=== PATIENT | female | born 1935 | race Caucasian/White ===

== ENCOUNTER 2019-03-28 10:34 | Observation (INO) | payer OTHER, MEDICARE ==
--- NOTE | 2019-03-28 11:00 | EDPHY ---
H & P - Personal History Tetanus Vaccine Date: 2007 - Medical/Surgical History Hx Asthma: No Hx Chronic Respiratory Disease: Yes Hx Diabetes: No Hx Cardiac Disease: No Hx Renal Disease: No Hx Cirrhosis: No Hx Alcoholism: No Hx HIV/AIDS: No Hx Splenectomy or Spleen Trauma: No Other PMH: hysterectomy, R masectomy, Afib, anxiety, gerd, high cholesterol, PE 2007, ortho surgery, duodenal ulcer. mild diabetic, unmedicated. copd - Social History Smoking Status: Never smoked Time Seen by Provider: 03/28/19 10:45 HPI/ROS: CHIEF COMPLAINT: Headache, chest pain, dyspnea HISTORY OF PRESENT ILLNESS: 83-year-old female history of atrial fibrillation, arrives via ambulance complaining of waking up at 4:00 a.m. with non thunderclap holocephalic headache neck pain as well as left-sided chest and arm pain. She went back to sleep woke few hours later and symptoms continued which point she contacted the nurse line who recommend she call 911. She currently denies chest pain. She is complaining of continued headache. Denies: Gait instability, visual disturbance, photophobia, nausea, vomiting, recent illness, melena, hematochezia PRIMARY CARE PROVIDER: Dr. Atul Maya REVIEW OF SYSTEMS: 10 systems reviewed and negative with the exception of the elements mentioned in the history of present illness PAST MEDICAL & SURGICAL HISTORY: Atrial fibrillation on anticoagulation. Retained surgical needle in her abdomen secondary to hysterectomy in 2012. SOCIAL HISTORY:Nonsmoker. Lives at home. PHYSICAL EXAM (Prior to examination, patient consented to physical exam, hands were washed and my usual and customary physical exam procedures followed) 1) GENERAL: Well-developed, well-nourished, alert and oriented. Appears to be in no acute distress. 2) HEAD: Normocephalic, atraumatic 3) HEENT: Pupils equal, round, reactive to light bilaterally. Sclera anicteric. [ 4) NECK: Full range of motion, no meningeal signs. No carotid bruit 5) LUNGS: Clear auscultation bilaterally, no wheezes, no rhonchi, no retractions. 6) HEART: Regular rate and rhythm, no murmur, no heave, no gallop. 7) ABDOMEN: No guarding, no rebound, no focal tenderness, negative McBurney's, negative Olguin's, negative Rovsing's, negative peritoneal sign, 8) MUSCULOSKELETAL: Moving all extremities, no focal areas of tenderness, no obvious trauma. No peripheral edema or discoloration. Negative Homans no palpable cord 9) BACK: No CVA tenderness, no midline vertebral tenderness, no fluctuance, no step-off, no obvious trauma, no visual or palpable abnormality. 10) SKIN: No rash, no petechiae. 11) Psychiatric: Patient is oriented X 3, there is no agitation. DIFFERENTIAL DIAGNOSIS: In no particular order, including but not limited to myocardial ischemia, pulmonary embolus, chest wall pain, pleural inflammation and pulmonary infectious causes. (Marco Lim) Constitutional: Initial Vital Signs Temperature (C) 36.8 C 03/28/19 11:31 Heart Rate 83 03/28/19 11:31 Respiratory Rate 18 03/28/19 11:31 Blood Pressure 151/62 H 03/28/19 11:31 O2 Sat (%) 97 03/28/19 11:31 O2 Delivery Mode Nasal Cannula O2 (L/minute) 1 Allergies/Adverse Reactions: rocuronium Allergy (Severe, Verified 03/28/19 11:35) respiratory depression codeine [Codeine] Allergy (Intermediate, Verified 03/28/19 11:35) RASH, NAUSEA hydromorphone HCl [From Dilaudid] Allergy (Intermediate, Verified 03/28/19 11:35 ) RASH, NUASE Home Medications: Medication Instructions Recorded Acetaminophen [Tylenol ES 500 mg 1,000 mg PO DAILY18 PRN 03/07/13 (*)] Albuterol [Proventil Inhaler HFA 1 - 2 puffs IH Q4 PRN 03/07/13 (*)] Atorvastatin Calcium [Lipitor 10 10 mg PO DAILY 03/07/13 mg (*)] Azelastine [Astelin] 1 sprays EACHNARE DAILY 03/07/13 Budesonide/Formoterol 160/4.5 2 puffs IH BID 03/07/13 [Symbicort 160-4.5 Mcg Inh (*)] Cholecalciferol Vit D3 [Vitamin D3 1,000 units PO DAILY 03/07/13 (*)] Esomeprazole Magnesium [Nexium] 40 mg PO BID 03/07/13 Furosemide [Lasix 20 MG (*)] 20 mg PO DAILY 03/07/13 Gabapentin [Neurontin 100 MG (*)] 200 mg PO TID 03/07/13 Herbals/Supplements -Info Only 1 each PO AD 03/07/13 Multivitamins [Multivitamin (*)] 1 each PO DAILY 03/07/13 Spironolactone 50 mg PO BID 03/07/13 busPIRone HCL [Buspirone HCl] 20 mg PO DAILY18 03/07/13 busPIRone HCL [Buspirone HCl] 30 mg PO DAILY 03/07/13 Apixaban [Eliquis] 5 mg PO BID 12/24/14 Bisoprolol Fumarate [Zebeta] 10 mg PO DAILY 12/24/14 Famotidine [Pepcid 20 MG (*)] 20 mg PO DAILY 12/24/14 Fluticasone Nasal [Flonase Nasal 2 sprays EACHNARE DAILY 12/24/14 Bishop] ZOLPIDEM TARTRATE [Ambien CR 12.5 12.5 mg PO HS 12/24/14 mg] Medical Decision Making - Diagnostics EKG Interpretation: EKG: Complete interpretation has been separately recorded in the [facility] archive. Summary impression: Atrial fibrillation, rate 85, no ST segment elevation or depression noted (Michael Vela) Imaging Results: Imaging Impressions Chest X-Ray 03/28/19 10:55 Impression: Early or impending CHF. A routine upright PA chest would be helpful , if and when the patient is clinically able, to better evaluate the cardiothoracic equilibrium. Procedures: Rectal examination Indication: Anemia Indications risks benefits discussed with patient she consents. With female certified emergency vehicle technician Lynsey at bedside the patient was placed in left lateral recumbent position. Digital rectal examination reveals hard brown stool in the rectal vault. Patient tolerated procedure well. (Marco Lim) ED Course/Re-evaluation: Reviewed the patient's medical records including noncontrast CT , CTA brain performed 3 days ago at outpatient [facility]. Noncontrast CT is negative. CTA brain shows a "stable tiny outpouching arising from the superior aspect of the mid left M1 branch most consistent with an infundibulum rather than a true aneurysm. No further follow-up necessary." Given the patient's age , risk factors, recommended admission for further evaluation of her chest pain. Will hold at this time on imaging of the brain given her her recent imaging at [facility]. Due to her history of retained intra-abdominal surgical instrument MRI is not possible. Noon: Consultation with hospitalist Dr. Amber Sarabia will admit patient for chest pain (Marco Lim) - Data Points Laboratory Results: Laboratory Results 03/28/19 11:05 03/28/19 11:05 03/28/19 03/28/19 03/28/19 11:26 11:13 11:05 WBC RBC Hgb POC Hgb 10.5 gm/dL L gm/dL (12.6-16.3) Hct POC Hct 31 % L % (38-47) MCV MCH MCHC RDW Plt Count MPV Neut % (Auto) Lymph % (Auto) [place] % (Auto) Eos % (Auto) Baso % (Auto) Nucleat RBC Rel Count Absolute Neuts (auto) Absolute Lymphs (auto) Absolute Monos (auto) Absolute Eos (auto) Absolute Basos (auto) Absolute Nucleated RBC Immature Gran % Immature Gran # POC Sodium 136 mEq/L mEq/L (135-145) Sodium 134 mEq/L L mEq/L (135-145) POC Potassium 4.3 mEq/L mEq/L (3.3-5.0) Potassium 4.6 mEq/L mEq/L (3.5-5.2) POC Chloride 100 mEq/L mEq/L (97-110) Chloride 100 mEq/L mEq/L (97-110) Carbon Dioxide 24 mEq/l mEq/l (22-31) POC Total CO2 26 mEq/L mEq/L (22-31) Anion Gap 10 mEq/L mEq/L (6-14) POC BUN 26 mg/dL H mg/dL (7-23) BUN 29 mg/dL H mg/dL (7-23) Creatinine 0.8 mg/dL mg/dL (0.6-1.0) POC Creatinine 0.9 mg/dL mg/dL (0.6-1.0) Estimated GFR > 60 Glucose 146 mg/dL H mg/dL (70-100) POC Glucose 155 mg/dL H mg/dL (70-100) Calcium 9.2 mg/dL mg/dL (8.5-10.4) POC Troponin I Stool Occult Bld Scrn NEGATIVE (NEGATIVE) 03/28/19 03/28/19 11:05 10:58 WBC 16.25 10^3/uL H 10^3/uL (3.80-9.50) RBC 3.81 10^6/uL L 10^6/uL (4.18-5.33) Hgb 9.8 g/dL L g/dL (12.6-16.3) POC Hgb Hct 31.0 % L % (38.0-47.0) POC Hct MCV 81.4 fL L fL (81.5-99.8) MCH 25.7 pg L pg (27.9-34.1) MCHC 31.6 g/dL L g/dL (32.4-36.7) RDW 16.1 % H % (11.5-15.2) Plt Count 318 10^3/uL 10^3/uL (150-400) MPV 10.1 fL fL (8.7-11.7) Neut % (Auto) 83.5 % H % (39.3-74.2) Lymph % (Auto) 10.0 % L % (15.0-45.0) [place] % (Auto) 4.8 % % (4.5-13.0) Eos % (Auto) 0.9 % % (0.6-7.6) Baso % (Auto) 0.2 % L % (0.3-1.7) Nucleat RBC Rel Count 0.0 % % (0.0-0.2) Absolute Neuts (auto) 13.57 10^3/uL H 10^3/uL (1.70-6.50) Absolute Lymphs (auto) 1.62 10^3/uL 10^3/uL (1.00-3.00) Absolute Monos (auto) 0.78 10^3/uL 10^3/uL (0.30-0.80) Absolute Eos (auto) 0.15 10^3/uL 10^3/uL (0.03-0.40) Absolute Basos (auto) 0.04 10^3/uL 10^3/uL (0.02-0.10) Absolute Nucleated RBC 0.00 10^3/uL 10^3/uL (0-0.01) Immature Gran % 0.6 % % (0.0-1.1) Immature Gran # 0.09 10^3/uL 10^3/uL (0.00-0.10) POC Sodium Sodium POC Potassium Potassium POC Chloride Chloride Carbon Dioxide POC Total CO2 Anion Gap POC BUN BUN Creatinine POC Creatinine Estimated GFR Glucose POC Glucose Calcium POC Troponin I 0.02 ng/mL ng/mL (0.00-0.08) Stool Occult Bld Scrn Point of Care Test Results: Chemistry 03/28/19 03/28/19 11:13 10:58 POC Sodium 136 mEq/L mEq/L (135-145) POC Potassium 4.3 mEq/L mEq/L (3.3-5.0) POC Chloride 100 mEq/L mEq/L (97-110) POC Total CO2 26 mEq/L mEq/L (22-31) POC BUN 26 mg/dL H mg/dL (7-23) POC Creatinine 0.9 mg/dL mg/dL (0.6-1.0) POC Glucose 155 mg/dL H mg/dL (70-100) POC Troponin I 0.02 ng/mL ng/mL (0.00-0.08) ISTAT H&H 03/28/19 11:13 POC Hgb 10.5 gm/dL L gm/dL (12.6-16.3) POC Hct 31 % L % (38-47) Departure - Departure Disposition: [facility] Inpatient Acute Clinical Impression: Chest pain Qualifiers: Chest pain type: unspecified Qualified Code(s): R07.9 - Chest pain, unspecified Headache Qualifiers: Headache type: unspecified Headache chronicity pattern: acute headache Intractability: not intractable Qualified Code(s): R51 - Headache Anemia Qualifiers: Anemia type: unspecified type Qualified Code(s): D64.9 - Anemia, unspecified Condition: Fair
[2019-03-28 11:15] LABS: PLATELET COUNT 318 10^3/uL (150-400)
--- NOTE | 2019-03-28 11:15 | CPEKG ---
Test Reason : OPEN Blood Pressure : / mmHG Vent. Rate : 085 BPM Atrial Rate : 000 BPM P-R Int : 166 ms QRS Dur : 087 ms QT Int : 372 ms P-R-T Axes : 000 085 016 degrees QTc Int : 443 ms Atrial fibrillation Anterior infarct, old Confirmed by Michael Vela ([id number]) on 03/28/2019 11:14:59 AM Referred By: Michael Vela Confirmed By:Michael Veal
[2019-03-28] MEDS ORDERED: MECLIZINE HCL 25 MG TAB PO PRN (13:59)
[2019-03-28] MEDS ORDERED: ONDANSETRON 4 MG/2 ML VIAL IVP PRN (14:00)
[2019-03-28] MEDS ORDERED: traMADol 50 MG TAB PO PRN (14:00)
[2019-03-28] MEDS ORDERED: D50W 25 GM/50 ML SYR IVP PRN (14:07)
[2019-03-28] MEDS: oxyCODONE IR 5 MG TAB PO PRN ×3 (14:30→22:35)
--- NOTE | 2019-03-28 15:07 | GHP ---
[f rep st] HISTORY AND PHYSICAL DATE OF ADMISSION: 03/28/2019 CHIEF COMPLAINT: Chest pain, vertigo, headache. HISTORY: The patient is an 83-year-old female who has been having a headache and dizziness for the last 2 weeks. Headache has been very severe, frontal, with associated dizziness which she describes consistent with vertigo. She saw her primary care doctor and had an outpatient CT scan of the head and CT angiogram. CT head was negative. CTA showed "stable tiny outpouching arising from the superior aspect of the mid left M1 branch most consistent with an infundibulum rather than a true aneurysm. No further followup necessary." Her headache continues but then last night she developed chest pain as well. She describes it as a midsternal chest pain feeling like a rock or heaviness on her chest associated with left-sided shoulder pain radiating down her arm. Chest pain lasted a few hours and is now gone. Her last stress test was approximately 3-4 years ago and she previously had a cardiac angiogram more distant than that. She sees Dr. James. Her shortness of breath is at baseline. She does have increased edema. She is currently requiring a walker because of her dizziness. PAST MEDICAL HISTORY: 1. Atrial fibrillation. 2. Congestive heart failure. 3. Obstructive sleep apnea on CPAP. 4. Diabetes type 2. 5. Duodenal ulcer with GI bleed. 6. Breast cancer 1989. 7. COPD 2 L. 8. Retained intraabdominal surgical instrument complication of her hysterectomy. PAST SURGICAL HISTORY: 1. Cholecystectomy. 2. Hysterectomy. 3. Mastectomy. MEDICATIONS: Please see computerized record for full detailed list. ALLERGIES: Dilaudid. SOCIAL HISTORY: She has never been a smoker. She is a recovering alcoholic. Has not had any alcohol in 36 years. She currently lives in [place] in the guest home on her son's property which is only a short distance to her son's home. REVIEW OF SYSTEMS: Complete review of systems obtained. Review of systems negative on constitutional, HEENT, GI, pulmonary, breast, , hematologic, endocrine, psych except for positives as in HPI. FAMILY HISTORY: Father had his 1st NE in his 50s. PHYSICAL EXAMINATION: GENERAL: Well-developed, well-nourished female, in no distress. VITAL SIGNS: Temperature 36.8, pulse 83, blood pressure 151/62, saturating 96% on 1 L. EYES: Normal conjunctivae. Pupils equal, round, react to light. ENT: Normal ears, nose. Hearing intact. Normal teeth. Oropharynx moist. NECK: Trachea midline. No thyromegaly. CHEST: Normal effort. LUNGS : Bibasilar rales. CARDIOVASCULAR: Regular rhythm. No murmur. 2+ lower extremity edema. ABDOMEN: Soft, nontender. No hepatosplenomegaly. SKIN: Warm, dry, intact. No rash. MUSCULOSKELETAL: No cyanosis or clubbing. Strength 5/5 upper and lower extremities. NEUROLOGIC: Cranial nerves intact. Normal sensation to light touch. PSYCH: Alert and oriented x3. Normal affect. Normal judgment. Normal memory. LABORATORY DATA: White count 16.25, hematocrit 31.0, platelets 318, sodium 134 , potassium 4.6, chloride 100, bicarb 24, BUN 29, creatinine 0.8, glucose 146. Troponins negative. EKG viewed by me. My personal interpretation is rate controlled atrial fibrillation but no ST- or T-wave changes. Chest x-ray shows cardiomegaly and congestive heart failure. ASSESSMENT/PLAN: 1. Chest pain. Her HEART score is 5. She is unable to exercise secondary to her vertigo, currently requiring a walker as well as mild decompensated congestive heart failure. Will continue serial troponins. Order Lexiscan stress test for tomorrow morning. 2. Acute on chronic congestive heart failure. We will check an echocardiogram to assess ejection fraction. Will diurese with IV Lasix. 3. Headache. She just had a CT angiogram of the head and a head CT a few days ago as an outpatient. The findings were as listed under HPI. Her headache has not changed since these scans were done so I do not think they need to be repeated. 4. Vertigo. Will prescribe meclizine as needed as well as physical and occupational therapy. She cannot get an MRI secondary to retained needle left in her intraabdominal cavity at the time of her hysterectomy. 5. Atrial fibrillation. She is on rate control with diltiazem and digoxin. Eliquis for stroke prevention. 6. Leukocytosis. Will rule out infection. 7. Microcytic anemia. We will check iron studies. 8. Obesity, BMI 34, with obstructive sleep apnea. Continue continuous positive airway pressure at night. 9. Chronic obstructive pulmonary disease with chronic respiratory failure 2 L baseline. Continue her typical inhaler regimen. 10. Diabetes type 2. Continue Lantus. 11. Duodenal ulcer with gastrointestinal bleed as well as a history of esophageal dysmotility that is known to cause intermittent chest pains. If cardiac workup is negative I do suspect current chest pain presentation is due to esophageal spasm. We will continue her proton pump inhibitor. CODE STATUS: Full. ADMISSION STATUS: 1. Will admit to observation. We will re-evaluate tomorrow. 2. DVT prophylaxis. She is on Eliquis. /[id number]/MODL MTDD
[2019-03-28] MEDS: busPIRone 15 MG TAB PO SCH ×2 (15:48→21:17)
[2019-03-28] MEDS: GABAPENTIN 400 MG CAP PO SCH ×2 (15:48→21:17)
[2019-03-28] MEDS: FUROSEMIDE 40 MG/4 ML VIAL IVP SCH (15:48)
[2019-03-28] MEDS: ACETAMINOPHEN 325 MG TAB PO PRN (16:06)
[2019-03-28] MEDS: INSULIN REGULAR HUMAN 100 UNIT/ML UNIT SC SCH ×2 (18:13→21:08)
--- NOTE | 2019-03-28 18:13 | ECHO ---
[email or web address] [address] Main: [phone] Echocardiography Examination Transthoracic Name: JAYRO MURRAY MR#: [id number] Study Date: 03/28/2019 Study Time: 02:50 PM Date of : 1935 Age: 83 year(s) Height: 154.9 cm (61 in.) Weight: 80.74 kg (178 lb.) BSA: 1.8 m2 Gender: Female Examination: Echo Contrast: Image Quality: Adequate Rhythm: Heart Rate: BP: 137 mmHg/57 mmHg Indication: CHF/chest pain/chronic atrial fibrillation Procedure Staff Referring Physician: Financial Report Service Sales Agent: Dennise Schmidt [facility] Reading Physician: Indira Benson MD Requesting Provider: Ordering Physician: Amber Sarabia Indication: CHF/chest pain/chronic atrial fibrillation Measurements Chambers AV/MV Label Value Normal Value Label Value Normal Value LVOTd 2.2 cm (1.8cm - 2cm) AV PGmean 8 mmHg LVDd, 2D 5 cm (3.9cm - 5.3cm) AV Vmax 1.92 m/s LVDs, 2D 2.8 cm (2.1cm - 4cm) MV E Vmax 1.5 m/s IVSd, 2D 0.9 cm (0.6cm - 1.1cm) MV A Vmax 0.38 m/s LVPWd, 2D 0.8 cm MV E/A 3.95 LVEF, BP 68 % (55% - 70%) MV E/E' lateral 22 LVEF, 2D 76 % (54% - 74%) MV E/E' septal 19 (0.45 - 1.25) LADs, 2D 4.1 cm (2.7cm - 3.8cm) MV E' septal 0.08 m/s Additional Vessels MV E' lateral 0.07 m/s Label Value Normal Value MV E/E' mean 20 AoAsc 3.2 cm MV E' mean 0.08 m/s AoRoot, MM 2.9 cm (2.2cm - 3.7cm) TV/PV Label Value Normal Value RA Pressure 5 mmHg RVSP 36 mmHg TR Pmax 31 mmHg TR Vmax 2.8 m/s Patient: JAYRO MURRAY Study Date: 03/28/2019 Page 1 of 3 02:50 PM Conclusions 1. The left ventricle is normal in size systolic function. Normal wall motion. Ejection fraction is 68% 2. The right ventricle normal size and systolic function. 3. Moderate biatrial dilation. 4. Mild mitral regurgitation. 5. moderate tricuspid regurgitation with normal estimated PA systolic pressure. 6. No prior transthoracic echo for comparison. The patient previously has had a somewhat limited VINNY in 2014. Findings Left Ventricle: Left ventricle is normal in size. Normal global systolic left ventricular function. The ejection fraction, measured by Simpsons method, is 68 %. EF range is estimated at 65 % - 70 %. Left ventricle wall thickness is normal. There are no regional wall motion abnormalities. Unable to assess Diastolic Dysfunction due to atrial fibrillation/a flutter. IVS: The septum is intact. Right Ventricle: Normal size right ventricle. Right ventricular systolic function is normal. Left Atrium: The left atrium is moderately dilated. IAS: Normal appearing atrial septum. Right Atrium: The right atrium is moderately dilated. Mitral Valve: Mild mitral regurgitation. No mitral valve stenosis. There is mild mitral calcification. Aortic Valve: Aortic leaflets exhibit normal cuspal separation. Trivial aortic regurgitation is present. There is no aortic stenosis. The aortic valve is trileaflet. Tricuspid Valve: Tricuspid valve leaflets are normal in appearance and function. Moderate tricuspid regurgitation. No tricuspid valve stenosis. Right Ventricular systolic pressure is measured at 36 mmHg. Pulmonary artery pressure normal. Pulmonic Valve: Pulmonic leaflets exhibit normal cuspal separation. No pulmonic valve regurgitation is evident. There is no pulmonic valve stenosis. Aorta: The aorta is normal. The aortic root size in M-mode measures 2.9 cm. The ascending aorta measures 3.2 cm. Aorta Measurements AoRoot, MM is 2.9 cm. Pulmonary Artery: The pulmonary artery morphology appears normal. IVC: The inferior vena cava is normal in size and course. There is no inspiratory collapse of the IVC. Pericardium: No pericardial effusion. No pleural effusion present. Exam Details Procedure Ordered: Echo Procedure Status: Routine study Image Quality: Adequate Facility Location: Cardiac Echo 1 Patient: JAYRO MURRAY Study Date: 03/28/2019 Page 2 of 3 02:50 PM (No Signature Object) Patient: JAYRO MURRAY Study Date: 03/28/2019 Page 3 of 3 02:50 PM [id number]
[2019-03-28] MEDS ORDERED: INSULIN GLARGINE HUM REC ANLOG 18 UNIT SQ SCH (21:00)
[2019-03-28] MEDS: APIXABAN 5 MG TAB PO SCH (21:17)
[2019-03-28] MEDS: ATORVASTATIN CALCIUM 10 MG TAB PO SCH (21:17)
[2019-03-28] MEDS ORDERED: INSULIN GLARGINE 100 UNITS/ML UNIT SC ONE (23:45)
[2019-03-29] MEDS: INSULIN REGULAR HUMAN 100 UNIT/ML UNIT SC SCH ×4 (07:40→21:52)
[2019-03-29] MEDS: ACETAMINOPHEN 325 MG TAB PO PRN ×2 (08:29→18:18)
[2019-03-29] MEDS: DILTIAZEM CD 180 MG CAP PO SCH (08:50)
[2019-03-29] MEDS: PANTOPRAZOLE SODIUM 40 MG TAB PO SCH (08:51)
[2019-03-29] MEDS: LOSARTAN POTASSIUM 50 MG TAB PO SCH (08:51)
[2019-03-29] MEDS: APIXABAN 5 MG TAB PO SCH (08:51)
[2019-03-29] MEDS: busPIRone 15 MG TAB PO SCH ×3 (08:51→21:51)
[2019-03-29] MEDS: GABAPENTIN 400 MG CAP PO SCH ×3 (08:51→21:52)
[2019-03-29] MEDS: FUROSEMIDE 40 MG/4 ML VIAL IVP SCH ×2 (08:51→15:36)
[2019-03-29 08:54] LABS: PLATELET COUNT 305 10^3/uL (150-400)
[2019-03-29] MEDS ORDERED: PANTOPRAZOLE SODIUM 40 MG TAB PO SCH (09:00)
[2019-03-29] MEDS: TIOTROPIUM INHALER 18 MCG/DOSE 5 DOSE/MDI IH SCH (09:43)
[2019-03-29] MEDS: BUDESONIDE/FORMOTEROL 160/4.5 60 PUFFS/MDI IH SCH (09:45)
[2019-03-29] MEDS: AZELASTINE NASAL MDI EACHNARE SCH (11:32)
[2019-03-29] MEDS: FLUTICASONE NASAL 120 SPRAYS/16 GM MDI EACHNARE SCH (11:32)
[2019-03-29] MEDS ORDERED: ALPRAZolam 0.25 MG TAB PO ONE ×2 (12:15)
[2019-03-29] MEDS ORDERED: ALPRAZolam 0.5 MG TAB PO ONE (12:15)
--- NOTE | 2019-03-29 12:19 | ASMTCMCOM ---
CM Note CM Note Notes: 03/29/2019 Case Management Note Discussed pt during rounds today. Pt admitted for chest pain, anemia, headache and dizziness. Met w/pt to discuss PT and OT recommendations for home care. Pt is open with [facility]. Faxed referral. Pt lives at [facility]. Pt lives in her own unit on her son Will's property. Will can be reached at [phone]. Pt is open with [facility] with regular visits from ORI Vogle and Jayda ESCOBEDO. Faxed updates. Case Management d/c poc: resume [facility] with [facility]. Case Management to follow. Date Signed: 03/29/2019 12:17 PM Electronically Signed By:Ammy Andrews RN
[2019-03-29] MEDS ORDERED: REGADENOSON 0.4 MG/5 ML SYR IVP ONE (13:35)
[2019-03-29] MEDS: oxyCODONE IR 5 MG TAB PO PRN ×2 (16:18→22:15)
--- NOTE | 2019-03-29 16:42 | HOSPPROG ---
Hospitalist Progress Note Assessment/Plan: 83 yo F w AF, CHRF here w cp, vertigo and R hand weakness R hand weakness: recent (03/25) ct/cta of head neg for cva weakness primarily thumb and index/middle finger, s/o peripheral issue check CT of c spine cannot get MRI 2/2 retained metal FB from surgery vertigo: has been going on for weeks has remote h/o meniere's disease and this is similar trial of meclizine and vestibular therapy AF; chronic continue eliquis chrf: stdwayne ? chf: she is euvolemic dc iv lasix dispo: obs, will be here overnight Subjective: tele: no events (interp by me). stress neg. ekg non ischemic ( interp by me) Objective: Vital Signs Temp Pulse Resp BP Pulse Ox 36.4 C 65 19 101/57 L 96 03/29/19 15:25 03/29/19 15:25 03/29/19 15:25 03/29/19 15:25 03/29/19 15:25 Laboratory Results 03/29/19 08:26 03/29/19 00:40 03/28/19 03/29/19 03/30/19 05:59 05:59 05:59 Intake Total 1086 Output Total 500 600 Balance 586 -600 - Physical Exam Constitutional: no apparent distress, appears nourished Eyes: PERRL, anicteric sclera Ears, Nose, Mouth, Throat: moist mucous membranes, hearing normal Cardiovascular: regular rate and rhythym, no murmur, rub, or gallop Respiratory: no respiratory distress, clear to auscultation Gastrointestinal: normoactive bowel sounds, soft, non-tender abdomen Genitourinary: no bladder fullness, No hartmann in urethra Skin: warm, normal color Musculoskeletal: full muscle strength Neurologic: AAOx3 ICD10 Worksheet Patient Problems: Problems Problem Status Onset Anemia Acute Chest pain Acute Headache Acute Aphasia Acute
[2019-03-29] MEDS ORDERED: BISACODYL 10 MG SUPP PR PRN (18:05)
[2019-03-29] MEDS ORDERED: MAGNESIUM HYDROXIDE 30 ML UDCUP PO PRN (18:05)
[2019-03-29] MEDS ORDERED: POLYETHYLENE GLYCOL 3350 17 GM PKT PO PRN (18:05)
[2019-03-29] MEDS ORDERED: LACTULOSE 20 GM/30 ML UDCUP PO PRN (18:05)
[2019-03-29] MEDS ORDERED: FAMOTIDINE 20 MG TAB PO SCH (21:00)
[2019-03-29] MEDS ORDERED: INSULIN GLARGINE 100 UNITS/ML UNIT SC SCH (21:00)
[2019-03-29] MEDS: SENNOSIDES/DOCUSATE SODIUM TAB PO SCH (21:51)
[2019-03-29] MEDS: ATORVASTATIN CALCIUM 10 MG TAB PO SCH (21:52)
--- NOTE | 2019-03-30 00:42 | CPR ---
[f rep st] NONINVASIVE CARDIAC PROCEDURE REPORT DATE OF PROCEDURE: 03/29/2019 PROCEDURE: Lexiscan nuclear stress test. INDICATION: The patient is an 83-year-old female with a history of atrial fibrillation and congestiv e heart failure, who presented to the hospital complaining of squeezing chest pain. Her discomfort d oes seem to correlate with food, especially if she eats meat or lettuce. Her risk factors for sales ry artery disease include hypertension and diabetes. PROCEDURE IN DETAIL: Consent was obtained, and the patient was placed on continuous telemetry. Her resting EKG reveals atrial fibrillation with a rate of 55 beats per minute. There is poor R wave pro gression and low voltage throughout. The patient was infused with Lexiscan and had minimal complaint s associated with the infusion. She remained in atrial fibrillation throughout the study without any significant ST-T wave changes. Her blood pressure at rest was 96/62 and peaked at 110/62. Her oxyg en saturation remained stable throughout the study. PLAN: Await nuclear images. /[id number]/MODL
[2019-03-30] MEDS: INSULIN REGULAR HUMAN 100 UNIT/ML UNIT SC SCH ×2 (07:48→12:51)
[2019-03-30] MEDS ORDERED: DIGOXIN 125 MCG TAB PO SCH (08:00)
[2019-03-30] MEDS: busPIRone 15 MG TAB PO SCH (08:10)
[2019-03-30] MEDS: GABAPENTIN 400 MG CAP PO SCH (08:10)
[2019-03-30] MEDS: LOSARTAN POTASSIUM 50 MG TAB PO SCH (08:10)
[2019-03-30] MEDS: DILTIAZEM CD 180 MG CAP PO SCH (08:11)
[2019-03-30] MEDS: PANTOPRAZOLE SODIUM 40 MG TAB PO SCH (08:11)
[2019-03-30] MEDS: SENNOSIDES/DOCUSATE SODIUM TAB PO SCH (08:11)
[2019-03-30] MEDS: FLUTICASONE NASAL 120 SPRAYS/16 GM MDI EACHNARE SCH (08:12)
[2019-03-30] MEDS: AZELASTINE NASAL MDI EACHNARE SCH (08:12)
[2019-03-30] MEDS: TIOTROPIUM INHALER 18 MCG/DOSE 5 DOSE/MDI IH SCH (09:21)
[2019-03-30] MEDS: BUDESONIDE/FORMOTEROL 160/4.5 60 PUFFS/MDI IH SCH (09:22)
[2019-03-30 10:55] VITALS: BP 114/62
[2019-03-30 11:52] LABS: INR 1.1 (0.83-1.16); PROTIME(PATIENT) 13.8 SEC (12.0-15.0)
[2019-03-30] MEDS ORDERED: LIDOCAINE 1% 300 MG/30 ML SDV ONE (12:49)
[2019-03-30] MEDS ORDERED: IOPAMIDOL (ISOVUE-M 300) 15 ML VIAL ONE (12:49)
--- NOTE | 2019-03-30 15:19 | HOSPPROG ---
Hospitalist Progress Note Assessment/Plan: 83 yo F w AF, CHRF here w cp, vertigo and R hand weakness R hand weakness: recent (03/25) ct/cta of head neg for cva weakness primarily thumb and index/middle finger, s/o peripheral issue COULD NOT DO CT MYELOGRAM 2 eliquis to be done as outpt vertigo: has been going on for weeks has remote h/o meniere's disease and this is similar trial of meclizine and vestibular therapy AF; chronic continue eliquis chrf: stbale ? chf: she is euvolemic dc iv lasix dispo: dc today Objective: Vital Signs Temp Pulse Resp BP Pulse Ox 36.6 C 69 18 114/62 95 03/30/19 10:55 03/30/19 10:55 03/30/19 10:55 03/30/19 10:55 03/30/19 10:55 Laboratory Results 03/30/19 11:34 03/29/19 00:40 03/29/19 03/30/19 03/31/19 05:59 05:59 05:59 Intake Total 1086 800 640 Output Total 500 1150 700 Balance 586 -350 -60 PT 13.8 SEC (12.0-15.0) 03/30/19 11:34 INR 1.10 (0.83-1.16) 03/30/19 11:34 ICD10 Worksheet Patient Problems: Problems Problem Status Onset Anemia Acute Chest pain Acute Headache Acute Aphasia Acute
--- NOTE | 2019-03-30 15:30 | PDIAF ---
- Diagnosis Diagnosis: chest pain and vertigo Code Status: Full Code - Medication Management Discharge Medications: electronically signed and located in the Home Medication List. - Orders Services needed: Home Care, Registered Nurse Home Care Face to Face: I certify that this patient was under my care and that I had the required [id number]-[id number] encounter meeting the encounter requirements on the discharge day. My findings support the fact that the patient is homebound as defined in Home Care Face to Face Continued: CMS Chapter 7 Medicare Benefits Manual 30.1.1 , The condition of the patient is such that there exists a normal inability to leave home and consequently, leaving home would require a considerable and taxing effort. Isolation Type: None - Follow Up Care Current Providers and Referrals: Patient,NotPresent [Unknown] - As per Instructions
--- NOTE | 2019-03-30 17:01 | ASDISCHSUM ---
Discharge Information Plan Status:Home with Home Health Medically Cleared to Leave:03/30/2019 Discharge Date:03/30/2019 04:11 PM D/C Disposition:Home Health Service [facility] D/C Disposition:Home, Routine, Self-Care Projected Discharge Date:03/30/2019 11:00 AM Transportation at D/C: Discharge Delay Reason: Follow-Up Date:03/30/2019 11:00 AM Discharge Slot: Final Diagnosis: Placement Information Referral Type:*Home Health Care Services Referral ID:[id number] Provider Name:[facility]) Address 1:[address] [place] [address] Address 2: City:[place] Selection Factors: State:[place] Referral Type:Palliative Care Referral ID:[id number] Provider Name:[facility] Address 1:[address] Phone Number: Address 2: Fax Number: [facility]:[place] Selection Factors: State:[place] Patient Contact Information Contact Name:JESSICA Relationship:Marcos Address:[facility] [address] City:[place] Alternate Phone: State/Zip Code:[place] [address] Email: Financial Information Financial Class:Medicare Primary Plan Desc:MEDICARE OUTPATIENT Primary Plan Number:[id number] Secondary Plan Desc:AARON/KASH SUPPLEMENT Secondary Plan Number:[id number] Assessment Information LACE LACE Length of stay for Answers: 2 days current admission Acuity / Level of Answers: No Care: Did the patient have an inpatient admission? Comorbidities - select Answers: Diabetes (uncontrolled or all that apply controlled) Other Notes: AFib; PE # of Emergency department Answers: 1-2 visits in the last 6 months Social determinants Answers: Mental health diagnosis (anxiety, depression, pers onality disorders, etc.) Score: 8 Date Signed: 03/30/2019 04:58 PM Electronically Signed By:Ammy Andrews RN [facility] CM Progress Note CM Note CM Note Notes: 03/29/2019 Case Management Note Discussed pt during rounds today. Pt admitted for chest pain, anemia, headache and dizziness. Met w/pt to discuss PT and OT recommendations for home care. [facility] with [facility]. Faxed referral. Pt lives at [address] [place] [address] within [facility] [place], operated [facility]. Pt lives in her own unit on her son Zac's property. Will can be reached at [phone]. Pt is open with [facility] with regular visits from ORI Vogel and Jayda ESCOBEDO. Faxed updates. Case Management d/c poc: resume [facility] with [facility]. Case Management to follow. Date Signed: 03/29/2019 12:17 PM Electronically Signed By:Ammy Andrews RN Case Management Discharge Plan Note Case Management Discharge Discharge Order Complete? Answers: Yes Patient to Obtain Answers: via Family Medications Transportation Arranged Answers: Family/Friends Faxed Final Orders Answers: Yes Notes: [facility] Agency/Facility Transfer Answers: Yes Notes: [facility] Report Printed & Faxed to [facility]ceiving [facility] Discharge Comments Notes: 03/30/2019 Case Management Note Faxed final orders to [facility] via allscripts. Discussed with [facility] onsite today. Case Management d/c poc: resuming [facility] and [facility] outpatient follow. Date Signed: 03/30/2019 05:00 PM Electronically Signed By:Ammy Andrews RN Intervention Information Intervention Type:*MENDEZ-Signed Date of Service:03/29/2019 09:38 AM Patient Type:Observation Staff Member:Latricia Garcia Hours: Discipline: Severity: Comment:
--- NOTE | 2019-03-30 17:14 | GDS ---
[f rep st] DISCHARGE SUMMARY DISCHARGE DIAGNOSES: 1. Chest pain with negative workup. 2. Neurologic symptoms including some right hand weakness, the vertigo-like symptoms not responsive to meclizine, and some unsteadiness on her feet. This has been a longstanding problem. The Thursday p rior to admission, she had a contrasted CT at [facility] that was apparently negative. When I s aw the patient, she had a little bit of right-hand weakness in the median nerve distribution, which i s a peripheral phenomenon. CT myelogram of the spine was ordered, but it could not be accomplished b ecause the patient had not been off her Eliquis for 48 hours. This will be accomplished as an outpat ient. I spoke with her outpatient neurologist, Dr. Sivakumar Jasmine, here in followup. Regarding her chest pain, she had a nonischemic EKG, negative troponins, and normal myocardial perfus ion study. She is discharged home on an unchanged medical regimen. /[id number]/MODL
== END 2019-03-30 16:11 | disposition home or self-care (01) ==
LOC: EDUNIT# → F2W 13:40
PROVIDERS: ADMIT Internal Medicine; ATTEND Internal Medicine
DX: R07.89 Other chest pain (principal); R53.1 Weakness; R26.81 Unsteadiness on feet; D64.9 Anemia, unspecified; I48.91 Unspecified atrial fibrillation; G47.33 Obstructive sleep apnea (adult) (pediatric); E11.9 Type 2 diabetes mellitus without complications; J44.9 Chronic obstructive pulmonary disease, unspecified; I50.9 Heart failure, unspecified; R42 Dizziness and giddiness; Z79.01 Long term (current) use of anticoagulants; Z86.711 Personal history of pulmonary embolism
CPT/HCPCS: 71046; 78452; 93005; 93017; 93306; 96372; 96374; 96375; 96376; 97116; 97161; 97166; 97530; 99285; A9500; G0378; J1815; J1940; J2405; J2785; Q9967; 82435-PO; 82565-PO; 82947-PO; 84132-PO; 84295-PO; 84484-ER; 84520-PO; 85014-ER